=== PATIENT | male | born 1945 | race Caucasian/White ===

== ENCOUNTER 2024-01-05 12:37 | Emergency (ER) | payer OTHER, SELFPAY ==
[2024-01-05 12:37] VITALS: BP 131/78; PULSE 64; RESP 14; TEMP 36.1; O2SAT 100; BMI 23.4
--- NOTE | 2024-01-05 13:29 | EKG12_ITS ---
Test Reason : RIB PAIN Blood Pressure : / mmHG Vent. Rate : 055 BPM Atrial Rate : 055 BPM P-R Int : 162 ms QRS Dur : 130 ms QT Int : 470 ms P-R-T Axes : 029 -69 007 degrees QTc Int : 449 ms Sinus bradycardia Left axis deviation Right bundle branch block Abnormal ECG Confirmed by JOSE ACEVEDO, BINH ([id number]), editor at large LAY BOYER ([id number]) on 01/08/2024 6:48:39 AM Referred By: Confirmed By:BINH GARCIA MD
--- NOTE | 2024-01-05 13:29 | RAD_ITS ---
INDICATION: left rib pain, lower EXAMINATION/TECHNIQUE: X-RAY - XR Ribs Unilateral W/ PA Chest Min 3 Views COMPARISON: No relevant prior comparison study available FINDINGS: SOFT TISSUES: No soft tissue swelling or gas. BONES: No displaced fracture. No sclerotic or destructive changes observed. VISUALIZED LUNGS: Clear. No pneumothorax. RAD/Ribs Uni Min 3V w/PA Chest IMPRESSION: No evidence of displaced rib fracture. Electronically Signed: Gil Lopez MD at 14:00 EDT ,
--- NOTE | 2024-01-05 13:36 | ED.VIS.CHEST ---
HPI History of Present Illness Chief Complaint: Chest Other Informant: patient Narrative Narrative: Patient is a 78-year-old male with history of coronary artery disease presenting from urgent care for evaluation of left-sided rib pain. Patient has been having intermittent left-sided rib pain for the past 2 days. He states before that he was working around his house and working on his lawn more and he thinks that might have caused the pain. He denies any trauma or injury. He states the pain is better in the morning but worse as the day goes on he moves around more. The pain is worse with movement as well as deep inspiration. He states if he takes big breath it causes his breath to catch. He very specifically points to his left lower ribs at the mid axillary line. He denies any radiation of the pain. Denies any swelling of his legs. Does not think he is on any blood thinners but is not sure and states [facility] Has not taken anything for his pain. No other complaints or concerns at this time. [facility] Medical History Heart attack Allergy/AdvReac Type Severity Reaction Status Date / Time No Known Allergies Allergy Verified 01/05/24 12:38 Social History Smoking Status: Former smoker ROS ROS ED Constitutional Constitutional ED: Denies chills or fever(s) Cardiovascular Cardiovascular: Denies chest pain Respiratory/Chest Respiratory/Chest: Denies cough or dyspnea Gastrointestinal Gastrointestinal: Denies nausea or vomiting Musculoskeletal Musculoskeletal: Reports other Details: let sided rib/chest wall pain ; Denies arthralgias Integumentary Denies rash Neurologic Neurologic: Denies headache(s) or paresthesias Hematologic/Lymphatic Hematologic/Lymphatic: Denies easy bleeding or easy bruising EXAM Physical Exam Const Vital Signs: 01/05/24 12:37 01/05/24 14:51 Temperature 97 F L 97.9 F Temperature Source Temporal Pulse Rate 64 62 Respiratory Rate 14 16 Blood Pressure 131/78 H 128/70 H Blood Pressure Mean 95 89 Pulse Ox 100 97 Oxygen Delivery Method Room Air Positive well nourished and well developed General Appearance ED: well developed and NAD HEENT normocephalic Neck supple and no JVD Chest Wall inspection of chest normal and palpation of chest normal Chest Narrative: No chest wall crepitus. Patient points to his left lower ribs at the costal margin the mid axillary line as his area of pain. He has mild tenderness with direct palpation of that pinpoint area. No deformity appreciated. No associated rash in this area. Chest: tenderness Resp normal respiratory effort and clear to auscultation bilaterally Auscultation: Negative for wheezes or diminished lung sounds Cardio regular rate, regular rhythm and no murmurs Extremity normal to inspection General Extremety ED: Negative for edema General Extremity: Negative for edema Neuro oriented x3 Sensorium / Orientation: awake and alert Motor Exam: Negative for general weakness Psych mental status grossly normal Skin no rashes or lesions noted and no wounds MDM MDM MDM Narrative Medical decision making narrative: Patient is evaluated for 2 days of left-sided chest wall pain. He denies any trauma but was laying on his side working on his lawnmower couple days ago. His vital signs are normal. The pain is highly reproducible with movement and direct palpation and not severe. I have a very low suspicion for any type of referred cardiac pain. He had equal breath sounds with suspicion for pneumothorax. Patient is a Lidoderm patch will obtain rib series x-rays to rule out associated rib fracture, pneumothorax or infiltrate. X-ray viewed by myself as well as radiology does not show any acute process. Patient has minimal to no pain at rest and only mild pain with movement. I will be discharged home. EKG does not show any acute ischemic changes. At this time I do not think patient needs cardiac or PE workup. He is not having any cardiorespiratory symptoms. His vital signs are normal. Patient is counseled that if his symptoms progress or if he does start to develop chest pain or respiratory symptoms he should return the emergency room and we will do a workup at that time. He is agreeable with this plan of care. Discussed taking Tylenol as needed for pain and using Lidoderm patches [id number]. Discharged home in stable condition. Radiography Diagnostic Testing: Clinical Impression(s) from Imaging Studies Ribs w/Chest X-Ray 01/05/24 13:29 IMPRESSION: No evidence of displaced rib fracture. Electronically Signed: Gil Lopez MD at 14:00 EDT , Rhythm Strip Rhythm Strip: Sinus Rhythm Rate: 55 Ectopy: None EKG Initial EKG: Attestation: I personally reviewed and interpreted this EKG as follows: Interpretation: Sinus Bradycardia Comments: Sinus bradycardia rate of 55 bpm Left axis deviation Right bundle branch block Normal ST segments No prior EKG available for comparison Discharge Plan Triage Chief Complaint: Chest Other ED Provider: Rachael Melendez Dx/Rx/DC Orders Clinical Impression: Left-sided chest wall pain Instructions: ED Strain Chest Wall Primary Care Provider: [facility] Referrals: [facility] [Primary Care Provider] - Activity Restrictions/Additional Instructions: Your chest x-ray does not show any collapsed lungs, pneumonia or acute rib injury/fracture. Your EKG does not show signs of acute heart attack. I suspect the pain in your ribs/chest wall is associated with your muscles and I do not think there is a more severe internal injury at this time. If you have a progression or change your symptoms please return to the emergency room for further workup. In the meantime use a Salonpas extra strength 4% Lidoderm patches to the area for pain as well as take Tylenol. Please follow-up with your primary care doctor. Print Language: Beninese Disposition Disposition: Home, Self Care Discharge Date/Time: 01/05/24 14:52
[2024-01-05] MEDS: Lidocaine 5% Patch 1 PATCH TOPICAL (14:01)
[2024-01-05 14:51] VITALS: BP 128/70; PULSE 62; RESP 16; TEMP 36.6; O2SAT 97
== END 2024-01-05 14:52 | disposition home or self-care (01) ==
PROVIDERS: Emergency Provider Emergency Medicine; Visit Provider Emergency Medicine
DX: R07.89 Other chest pain (principal); I25.2 Old myocardial infarction; Z87.891 Personal history of nicotine dependence
CPT/HCPCS: 71101; 93005; 99283